=== PATIENT | male | born 1985 ===

== ENCOUNTER 2016-12-11 06:40 | Emergency (ER) | payer OTHER ==
[2016-12-11 06:48] VITALS: O2SAT 98
[2016-12-11] MEDS ORDERED: Sodium Chloride 0.9% 1,000 ML IV ONE (07:13)
[2016-12-11] MEDS ORDERED: Sodium Chloride 0.9% 1,000 ML ONE (07:27)
[2016-12-11 07:46] LABS: BASO % 0.3 % (0.0-2.0); EOS # 0.5 K/uL (0.0-0.7); EOS % 7.4 % (0.0-4.0); HEMATOCRIT 37.4 % (35.0-51.0); LYMPH # 1.9 K/uL (1.0-4.3); LYMPH % 30.9 % (20.0-40.0); MEAN CELL VOLUME 65.8 fL (80.0-94.0); MEAN CORPUSCULAR HEMOGLOBIN 21.5 pg (27.0-31.0); MEAN CORPUSCULAR HGB CONC 32.7 g/dL (33.0-37.0); MEAN PLATELET VOLUME 10.7 fL (7.2-11.7); MONO # 0.5 K/uL (0.0-0.8); MONO % 8.1 % (0.0-10.0); NRBC % 0.2 % (0.0-2.0); RED CELL DISTRIBUTION WIDTH 17.3 % (11.5-14.5); WHITE BLOOD COUNT 6.2 K/uL (4.8-10.8)
--- NOTE | 2016-12-11 08:01 | C.PDOC ---
History Of Present Illness 31 year old male with no significant past medical history, presents to the ER with complaints of abdominal pain for the past 3 days. Patient states the pain is generalized and cramping in nature. Reports last BM was yesterday, but still feels gassy and bloated. Patient states he has tried taking pepto bismol with no relief. Patient denies fever, chills, chest pain, SOB, nausea, vomiting, diarrhea, constipation, dysuria, incontinence, back pain, weakness or numbness. Time Seen by Provider: 12/11/16 07:12 Chief Complaint (Nursing): Abdominal Pain History Per: Patient History/Exam Limitations: no limitations Onset/Duration Of Symptoms: Days (3) Current Symptoms Are (Timing): Still Present Location Of Pain/Discomfort: Diffuse Quality Of Discomfort: Cramping Associated Symptoms: denies: Nausea, Vomiting, Diarrhea, Constipation Last Bowel Movement: Yesterday Additional History Per: Family (Brother was seen at [facility] last week for abdominal pain and vomiting) Past Medical History Reviewed: Historical Data, Nursing Documentation, Vital Signs Vital Signs: Last Vital Signs Temp 97.9 F 12/11/16 09:51 Pulse 61 12/11/16 09:51 Resp 18 12/11/16 09:51 BP 110/63 12/11/16 09:51 Pulse Ox 98 12/11/16 09:51 Family History: States: No Known Family Hx - Social History Hx Alcohol Use: Yes Hx Substance Use: No - Immunization History Hx Tetanus Toxoid Vaccination: No Hx Influenza Vaccination: No Hx Pneumococcal Vaccination: No Review Of Systems Except As Marked, All Systems Reviewed And Found Negative. Constitutional: Negative for: Fever, Chills Cardiovascular: Negative for: Chest Pain Respiratory: Negative for: Shortness of Breath Gastrointestinal: Positive for: Abdominal Pain. Negative for: Nausea, Vomiting , Diarrhea, Constipation Genitourinary: Negative for: Dysuria, Incontinence Musculoskeletal: Negative for: Back Pain Neurological: Negative for: Weakness, Numbness Physical Exam - Physical Exam Appears: Non-toxic, No Acute Distress Skin: Warm, Dry, No Rash Head: Atraumatic, Normacephalic Eye(s): bilateral: Normal Inspection Oral Mucosa: Moist Neck: Normal ROM Chest: Symmetrical, No Tenderness Cardiovascular: Rhythm Regular, No Murmur Respiratory: Normal Breath Sounds, No Rales, No Rhonchi, No Stridor, No Wheezing Gastrointestinal/Abdominal: Soft, Tenderness (Diffuse), No Guarding, No Rebound , Other ((-) Mcburney tenderness) Back: Normal Inspection, No CVA Tenderness, No Vertebral Tenderness, No Paraspinal Tenderness Extremity: Normal ROM, No Tenderness, No Deformity, No Swelling Neurological/Psych: Oriented x3, Normal Speech, Normal Motor Gait: Steady ED Course And Treatment - Laboratory Results Result Diagrams: 12/11/16 07:38 12/11/16 07:38 Lab Interpretation: No Acute Changes O2 Sat by Pulse Oximetry: 98 (RA) Pulse Ox Interpretation: Normal Medical Decision Making Medical Decision Making: Impression: Abdominal pain, tender diffuse without guarding or rebound Plan: * Labs * UA * IV NS * Pepcid Progress: 08:00 Labs reviewed and unremarkable, no leukocytosis or electrolyte abnormality 0858: Urine results normal 09:00 Patient sleeping comfortable in bed. I reevaluate and ask how he is feeling and explain lab results. The patient wants an ultrasound or CT scan to check he "is ok", even though he reports pain is mostly improved. Offer Xray abdomen which was ordered. 09:15 Xray shows fecal retention, no signs of obstruction 09:18 Discussed results with patient, and copy of report was provided. Advise increase in water and fiber intake. Plan is for discharge home with Rx. Patient feels comfortable going home and will be discharged. Patient given follow up instructions. Instructed to return to ER if symptoms worsen or new symptoms arise. Disposition Counseled Patient/Family Regarding: Studies Performed, Diagnosis, Need For Followup, Rx Given - Disposition Referrals: [facility] [Outside] Disposition: HOME/ ROUTINE Disposition Time: 09:35 Condition: IMPROVED Additional Instructions: Estephania laboratorios son normales y la radiografa muestra estreimiento Beber ms agua y comer ms fibra [place] [facility] para el dolor y el estreimiento seguimiento en la clnica Prescriptions: Dicyclomine [Dicyclomine HCl] 10 mg PO QID PRN #20 cap PRN Reason: Gi Distress Docusate [Colace] 100 mg PO TID PRN #60 cap PRN Reason: Constipation Magnesium Citrate [Citrate of Mag] 300 ml PO ONCE PRN #1 bottle PRN Reason: Constipation Instructions: High Fiber Diet (ED), Acute Abdominal Pain (DC) Forms: [employer] (Malay) Print Language: FILIPINO - POA Present On Arrival: None - Clinical Impression Clinical Impression: Abdominal pain, Constipation - PA / SANITARY INSPECTOR / Resident Statement MD/DO has reviewed & agrees with the documentation as recorded. - Scribe Statement The provider has reviewed the documentation as recorded by the Scribe Flower Capellan All medical record entries made by the Biancaibe were at my direction and personally dictated by me. I have reviewed the chart and agree that the record accurately reflects my personal performance of the history, physical exam, medical decision making, and the department course for this patient. I have also personally directed, reviewed, and agree with the discharge instructions and disposition.
[2016-12-11 08:11] LABS: CHLORIDE 100 mmol/L (98-107)
[2016-12-11 08:12] LABS: POTASSIUM 3.9 mmol/L (3.6-5.2); SODIUM 141 mmol/L (132-148)
[2016-12-11 08:14] LABS: ALB/GLOB RATIO 1.5 (1.0-2.1); ALKALINE PHOSPHATASE 54 U/L (38-126); ALT/SGPT 35 U/L (21-72); AST/SGOT 27 U/L (17-59); BILIRUBIN,TOTAL 0.9 mg/dL (0.2-1.3); BLOOD UREA NITROGEN 14 mg/dL (9-20); CARBON DIOXIDE 25 mmol/L (22-30); GFR AFRICAN-AMERICAN > 60; GLUCOSE,RANDOM 82 mg/dL (75-110); TOTAL PROTEIN 7.3 g/dL (6.3-8.3)
[2016-12-11 08:15] LABS: CALCIUM 8.3 mg/dl (8.6-10.4)
[2016-12-11 08:48] LABS: URINE BILIRUBIN NEGATIVE (NEGATIVE); URINE BLOOD NEGATIVE (NEGATIVE); URINE COLOR Amber (YELLOW); URINE GLUCOSE (UA) NORMAL (Normal); URINE KETONE NEGATIVE (NEGATIVE); URINE LEUKOCYTE ESTERASE NEG Leu/uL (Negative); URINE PROTEIN NEGATIVE (NEGATIVE); URINE UROBILINOGEN NORMAL mg/dL (0.2-1.0)
[2016-12-11 08:52] LABS: RBC URINE 3 /hpf (0-3)
[2016-12-11 09:53] VITALS: BP 110/63; PULSE 61; RESP 18; TEMP 97.9
--- NOTE | 2016-12-11 12:09 | RAD ---
PROCEDURE: Radiographs of the chest and abdomen (obstructive series) HISTORY: abd pain generalized COMPARISON: None available. TECHNIQUE: AP radiograph of the chest, with upright and supine radiographs of the abdomen. FINDINGS: CHEST: The cardiomediastinal silhouette appears within normal limits. No focal consolidation, significant pleural effusion, or definite pneumothorax identified.Please note that chest x-ray has limited sensitivity for the detection of pulmonary masses. ABDOMEN AND PELVIS: Nonobstructive bowel gas pattern. No definite free air. Mild constipation. No acute osseous abnormality is detected. IMPRESSION: Mild constipation.
== END 2016-12-11 10:04 | disposition home or self-care (01) ==
LOC: C.ER 06:40
DX: K59.00 Constipation, unspecified (principal); R10.9 Unspecified abdominal pain
CPT/HCPCS: 74022; 80053; 81001; 83690; 85025; 96374; 99284; J7040